=== PATIENT | female | born 1990 | race Caucasian/White ===

== ENCOUNTER 2016-09-24 05:36 | Emergency (ER) | payer MEDICARE, MEDICAID ==
[2016-09-24] MEDS ORDERED: SODIUM CHLORIDE 0.9% 1,000 ML ONE (06:43)
[2016-09-24] MEDS ORDERED: ACETAMINOPHEN 500 MG TABLET ONE (06:44)
[2016-09-24] MEDS ORDERED: FAMOTIDINE 10 MG/ML 2ML VIAL ONE (06:44)
[2016-09-24] MEDS ORDERED: DIPHENHYDRAMINE HCL 50 MG/1 ML VIAL ONE (06:44)
[2016-09-24] MEDS ORDERED: HALOPERIDOL LACTATE 5 MG/1 ML AMP ONE (06:44)
[2016-09-24 07:53] LABS: ABSOLUTE NEUTROPHIL COUNT 4.4 K/mm3 (1.8-7.7); BASO # 0.1 K/mm3 (0.0-0.2); BASO % 0.6 % (0.2-1.0); EOS # 0.4 (0.0-0.5); EOS % 4.5 % (0.9-2.9); HEMOGLOBIN 11.3 gm/l (12.0-16.0); IMM NEUT% 0.1 % (0-1); LYMPH # 2.2 (1.0-4.8); MEAN CELL VOLUME 85.4 fl (81.0-99.0); MEAN CORPUSCULAR HEMOGLOBIN 28.4 pg (27.0-31.0); MEAN CORPUSCULAR HGB CONC 33.2 g/dl (33.0-37.0); MONO # 0.7 (0.0-0.8); MONO % 8.4 % (4-12); NEUT % 57.4 % (43-75); PLATELET COUNT 223 K/mm3 (130-400); RED CELL DISTRIBUTION WIDTH 15.3 % (11.5-14.5)
[2016-09-24 08:08] LABS: ALB/GLOB RATIO 1.5 (>1.0); ALBUMIN 3.8 gm/dL (3.5-5.7); CALCIUM 8.7 mg/dL (8.6-10.3)
[2016-09-24] MEDS ORDERED: MAALOX/LIDO2%VISC/SIMETHICONE 40 ML BOT ONE (08:32)
[2016-09-24] MEDS ORDERED: KETOROLAC TROMETHAMINE 30 MG/ML 1 ML VIAL ONE (08:41)
== END 2016-09-24 09:22 | disposition home or self-care (01) ==
LOC: ED 05:36
DX: R10.12 Left upper quadrant pain (principal); R11.10 Vomiting, unspecified; F17.210 Nicotine dependence, cigarettes, uncomplicated
CPT/HCPCS: 82150; 84703; 85025; 80053; 96375 ×3; 99283 ×2; 96374; 96361 ×2; J1200; A9270 ×2; J1630; J1885; J7030

== ENCOUNTER 2016-10-31 15:50 | Emergency (ER) | payer MEDICARE, MEDICAID ==
[2016-10-31 17:17] LABS: SPECIFIC GRAVITY 1.015 (1.001-1.030); URINE BILIRUBIN NEGATIVE (NEGATIVE); URINE BLOOD NEGATIVE (NEGATIVE); URINE GLUCOSE (UA) NEGATIVE (NEGATIVE); URINE LEUKOCYTE ESTERASE NEGATIVE (NEGATIVE); URINE NITRITE NEGATIVE (NEGATIVE); URINE PROTEIN NEGATIVE (NEGATIVE); URINE UROBILINOGEN NORMAL (0-1 mg/dl)
[2016-10-31 17:22] LABS: URINE APPEARANCE CLEAR; URINE COLOR YELLOW
[2016-10-31 17:23] LABS: HCG,QUALITATIVE URINE NEGATIVE
[2016-10-31] MEDS ORDERED: ACETAMINOPHEN 325 MG TABLET ONE (20:22)
[2016-10-31] MEDS ORDERED: ONDANSETRON 4 MG ODT TAB ONE (20:22)
== END 2016-10-31 15:53 | disposition home or self-care (01) ==
LOC: ED 15:50
DX: R10.9 Unspecified abdominal pain (principal); K21.9 Gastro-esophageal reflux disease without esophagitis; F17.210 Nicotine dependence, cigarettes, uncomplicated; Z53.29 Procedure and treatment not carried out because of patient's decision for other reasons; Z79.899 Other long term (current) drug therapy; Z88.8 Allergy status to other drugs, medicaments and biological substances; Z91.012 Allergy to eggs
CPT/HCPCS: 81025; 81003; 99283 ×2; A9270 ×2